=== PATIENT | female | born 1990 | race Caucasian/White ===

== ENCOUNTER 2020-03-13 17:44 | Emergency (ER) | payer OTHER ==
[~2020-03-13] VITALS: Ht 165.1 cm; Wt 73.9 kg
[2020-03-13 17:50] VITALS: BP 134/79
[2020-03-13] MEDS ORDERED: AMOX-422 PO (18:54)
== END 2020-03-13 19:16 | disposition home or self-care (01) ==
LOC: ER 17:45
DX: S00.81XA Abrasion of other part of head, initial encounter (principal); S10.91XA Abrasion of unspecified part of neck, initial encounter; Z88.0 Allergy status to penicillin; Z79.899 Other long term (current) drug therapy; W55.03XA Scratched by cat, initial encounter; Y93.89 Activity, other specified; Y92.89 Other specified places as the place of occurrence of the external cause; Y99.8 Other external cause status
CPT/HCPCS: 99283